=== PATIENT | female | born 2000 | race Caucasian/White ===

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

== ENCOUNTER 2021-06-26 12:26 | Inpatient (IN) ==
[2021-06-26 13:52] LABS: Basophils # (auto) 0.05 K/uL (0-0.2); Basophils % (auto) 0.6 %; Eosinophils # (auto) 0.57 K/uL (0-0.5); Eosinophils % (auto) 6.8 %; Hemoglobin 13.2 g/dL (12.0-16.0); Immature Granulocytes # (auto) 0.02 K/uL (0.00-0.02); Immature Granulocytes % (auto) 0.2 %; Lymphocytes # (auto) 1.96 K/uL (1.2-3.4); Lymphocytes % (auto) 23.4 %; Mean Corpuscular Hemoglobin 30.3 pg (25-34); Mean Platelet Volume 10.6 fL (7.4-10.4); Monocytes % (auto) 7.2 %; Neutrophils # (auto) 5.18 K/uL (1.4-6.5); Neutrophils % (auto) 61.8 %; Platelet Count 315 K/uL (130-400); RDW Coefficient of Variation 12.6 % (11.5-14.5); RDW Standard Deviation 42.8 fL (36.4-46.3); Red Blood Count 4.35 M/uL (4.2-5.4); White Blood Count 8.38 K/uL (4.8-10.8)
[2021-06-26 14:05] LABS: Albumin Level 3.2 gm/dl (3.4-5.0); BUN Creatinine Ratio 14.5 (10-20); Calcium 8.8 mg/dl (8.5-10.1); Creatinine Clr Calc Pharmacy 97.7 ml/min; Est GFR (African American) 130.9 ml/min; Est GFR (Non-African American) 112.9 ml/min; Potassium 3.7 mmol/L (3.5-5.1)
[2021-06-26 14:06] LABS: Appearance Urine Clear (Clear); Bilirubin Urine Negative (Negative); Blood Urine Negative (Negative); Color Urine Yellow; Glucose Urine UA Negative (Negative); Ketones Urine Negative (Negative); Leukocyte Esterase Urine Negative (Negative); Nitrite Urine Negative (Negative); Protein Urine Negative (Negative); Specific Gravity Urine 1.015 (1.000-1.030); Urobilinogen Urine Negative (Negative); pH Urine 6.5 (4.5-7.5)
[2021-06-26 14:09] LABS: Albumin Globulin Ratio 0.9 (0.9-2); Bilirubin,Total 0.3 mg/dl (0.2-1); Globulin 3.4 gm/dl (2.5-4.0); Total Protein 6.6 gm/dl (6.4-8.2)
[2021-06-26] MEDS ORDERED: LACTATED RINGER'S 1,000 ML IV ONE ×3 (15:20→17:39)
--- NOTE | 2021-06-26 18:57 | Emergency Department Note ---
Impression & Plan Rhabdomyolysis Admission ED Provider Note HPI: The patient is an otherwise healthy 21-year-old female who presents the emergency department the chief complaint of bilateral arm pain. Patient states that she has a history of rhabdomyolysis, she states that she was lifting weights recently and when she woke up in the morning she had severe achiness in her bilateral trapezius area as well as her bilateral biceps. She states that previously she required IV fluids for rhabdomyolysis and this felt similar therefore she presented to the ED for further evaluation. On arrival to the ED the patient is hemodynamically stable, she is not tachycardic, she is saturating well on room air and is otherwise in no acute distress. ROS: -MSK: Muscle aches *10 point review systems was conducted and is otherwise negative unless stated above *Outpatient medications and allergy history reviewed PE: General: Alert, NAD HEENT: Normocephalic, atraumatic, trachea midline Eyes: Extraocular eye movement is intact, no scleral erythema Pulmonary: Clear to auscultation bilaterally, no wheezing Cardio: Regular rate and rhythm GI: Abdomen is soft, nontender : No suprapubic tenderness MSK: No evidence of trauma or malformation of the extremities, no edema Skin: No evidence of rash Neuro: Alert, no focal deficits Psychiatric: Cooperative Medical Decision Making: Patient presented to the emergency department with muscle aches, she states she has had rhabdomyolysis in the past associated with exertional exercise. Patient states that she was lifting 2 days ago and woke up with muscle aches. On arrival here to the ED she is hemodynamically stable, lab work does not show any evidence of acute kidney injury, she is not tachycardic, blood pressure stable. CK levels did return elevated at approximately 4200, patient was IV fluid resuscitated with 3 L of lactated Ringer's, repeat CPK level at this time shows uptrend to 5500, patient states that she had a similar course previously, repeat CK levels the next morning showed an uptrend and she required admission this past spring. I think given this and the fact that she is still symptomatic admission is appropriate. I discussed these findings with the on-call hospitalist and the patient was admitted for IV fluid resuscitation and repeat lab work in the morning. Patient was in agreement to this plan and she was admitted in stable condition. * Diagnosis: Rhabdomyolysis * Disposition: Admission Castillo Hagen DO Emergency Medicine Past Med/Surg History Medical History (Updated 06/26/21 @ 20:49 by Castillo Hagen DO) No pertinent family history No pertinent past medical history Rhabdomyolysis Surgical History (Updated 12/29/20 @ 18:38 by Lester Colin) No pertinent past surgical history Family History Other No pertinent family history Social History Smoking Status: Never smoker Hx Alcohol Use: Yes Alcohol type: wine Hx Substance Use: No Preferred Language: Kazakh Communication Ability: Effective Line Controller Required: No Beliefs That Will Affect Care: None Current Living Situation: Other Current Living Situation Comment: Student lives with two roommates Feels Safe at Home: Yes Assistive Devices: None Allergies Allergies Allergy/AdvReac Type Severity Reaction Status Date / Time No Known Allergies Allergy Verified 06/26/21 16:21 Home Meds Home Medications Medication Instructions Recorded Confirmed norethindrone 1.5 mg-ethinyl 1 tab PO DAILY 07/18/20 06/26/21 estradiol 30 mcg(21)/iron 75 mg(7) tablet (Junel FE 1.5/30 (28)) Results & Data (ED) Vital Signs Vital Signs - 24 hr 06/26/21 12:35 06/26/21 14:27 06/26/21 15:53 Temperature 36.7 C Temperature Source Temporal Artery Scan Pulse Rate 80 Pulse Rate [Right Finger] 100 H 66 Pulse Rhythm [Right Finger] Regular Pulse Strength [Right Finger] Normal Respiratory Rate 18 18 18 Respiratory Effort / Characteristics Non-Labored Respiratory Depth Normal Normal Respiratory Pattern Regular Blood Pressure 136/75 Blood Pressure [Right Arm] 120/72 120/72 Blood Pressure Mean 95 Blood Pressure Mean [Right Arm] 88 88 Blood Pressure Position [Right Arm] Lying Pulse Oximetry 98 100 100 Oxygen Delivery Method Room Air Room Air Room Air Sepsis Recent Fever Within 48 Hours No Sepsis New/Unexplained Change in Mental Status No Sepsis Action Taken by Nursing No Action Required 06/26/21 17:00 Temperature Temperature Source Pulse Rate Pulse Rate [Right Finger] 60 Pulse Rhythm [Right Finger] Regular Pulse Strength [Right Finger] Normal Respiratory Rate 16 Respiratory Effort / Characteristics Non-Labored Respiratory Depth Normal Respiratory Pattern Regular Blood Pressure Blood Pressure [Right Arm] 117/70 Blood Pressure Mean Blood Pressure Mean [Right Arm] 85 Blood Pressure Position [Right Arm] Lying Pulse Oximetry 100 Oxygen Delivery Method Room Air Sepsis Recent Fever Within 48 Hours Sepsis New/Unexplained Change in Mental Status Sepsis Action Taken by Nursing Laboratory Data Result diagrams: 06/26/21 13:21 06/26/21 13:21 Lab Results 06/26/21 06/26/21 06/26/21 Range/Units 13:21 13:21 13:30 WBC 8.38 (4.8-10.8) K/uL RBC 4.35 (4.2-5.4) M/uL Hgb 13.2 (12.0-16.0) g/dL Hct 40.0 (37-47) % MCV 92.0 (80-100) fL MCH 30.3 (25-34) pg MCHC 33.0 (32-36) g/dL RDW Std Deviation 42.8 (36.4-46.3) fL RDW Coeff of Yair 12.6 (11.5-14.5) % Plt Count 315 (130-400) K/uL MPV 10.6 H (7.4-10.4) fL Immature Gran % (Auto) 0.2 % Neut % (Auto) 61.8 % Lymph % (Auto) 23.4 % Phillips % (Auto) 7.2 % Eos % (Auto) 6.8 % Baso % (Auto) 0.6 % Neut # (Auto) 5.18 (1.4-6.5) K/uL Lymph # (Auto) 1.96 (1.2-3.4) K/uL Phillips # (Auto) 0.60 H (0.11-0.59) K/uL Eos # (Auto) 0.57 H (0-0.5) K/uL Baso # (Auto) 0.05 (0-0.2) K/uL Immature Gran # (Auto) 0.02 (0.00-0.02) K/uL Sodium 138 (136-145) mmol/L Potassium 3.7 (3.5-5.1) mmol/L Chloride 108 H (98-107) mmol/L Carbon Dioxide 23 (21-32) mmol/L Anion Gap 7.0 (3-11) BUN 11 (7-18) mg/dl Creatinine 0.76 (0.6-1.2) mg/dl Est Cr Clr Drug Dosing 97.7 ml/min Est GFR ( Amer) 130.9 ml/min Est GFR (Non-Af Amer) 112.9 ml/min BUN/Creatinine Ratio 14.5 (10-20) Glucose 108 H (70-99) mg/dl Calcium 8.8 (8.5-10.1) mg/dl Total Bilirubin 0.3 (0.2-1) mg/dl AST 119 H (15-37) U/L ALT 53 (12-78) U/L Alkaline Phosphatase 45 (45-117) U/L Total Creatine Kinase 4268 H (26-192) U/L Total Protein 6.6 (6.4-8.2) gm/dl Albumin 3.2 L (3.4-5.0) gm/dl Globulin 3.4 (2.5-4.0) gm/dl Albumin/Globulin Ratio 0.9 (0.9-2) Urine Color Yellow Urine Appearance Clear (Clear) Urine pH 6.5 (4.5-7.5) Ur Specific [place] 1.015 (1.000-1.030) Urine Protein Negative (Negative) Urine Glucose (UA) Negative (Negative) Urine Ketones Negative (Negative) Urine Blood Negative (Negative) Urine Nitrite Negative (Negative) Urine Bilirubin Negative (Negative) Urine Urobilinogen Negative (Negative) Ur Leukocyte Esterase Negative (Negative) 06/26/21 Range/Units 19:07 WBC (4.8-10.8) K/uL RBC (4.2-5.4) M/uL Hgb (12.0-16.0) g/dL Hct (37-47) % MCV (80-100) fL MCH (25-34) pg MCHC (32-36) g/dL RDW Std Deviation (36.4-46.3) fL RDW Coeff of Yair (11.5-14.5) % Plt Count (130-400) K/uL MPV (7.4-10.4) fL Immature Gran % (Auto) % Neut % (Auto) % Lymph % (Auto) % Phillips % (Auto) % Eos % (Auto) % Baso % (Auto) % Neut # (Auto) (1.4-6.5) K/uL Lymph # (Auto) (1.2-3.4) K/uL Phillips # (Auto) (0.11-0.59) K/uL Eos # (Auto) (0-0.5) K/uL Baso # (Auto) (0-0.2) K/uL Immature Gran # (Auto) (0.00-0.02) K/uL Sodium (136-145) mmol/L Potassium (3.5-5.1) mmol/L Chloride (98-107) mmol/L Carbon Dioxide (21-32) mmol/L Anion Gap (3-11) BUN (7-18) mg/dl Creatinine (0.6-1.2) mg/dl Est Cr Clr Drug Dosing ml/min Est GFR ( Amer) ml/min Est GFR (Non-Af Amer) ml/min BUN/Creatinine Ratio (10-20) Glucose (70-99) mg/dl Calcium (8.5-10.1) mg/dl Total Bilirubin (0.2-1) mg/dl AST (15-37) U/L ALT (12-78) U/L Alkaline Phosphatase (45-117) U/L Total Creatine Kinase 5582 H (26-192) U/L Total Protein (6.4-8.2) gm/dl Albumin (3.4-5.0) gm/dl Globulin (2.5-4.0) gm/dl Albumin/Globulin Ratio (0.9-2) Urine Color Urine Appearance (Clear) Urine pH (4.5-7.5) Ur Specific [place] (1.000-1.030) Urine Protein (Negative) Urine Glucose (UA) (Negative) Urine Ketones (Negative) Urine Blood (Negative) Urine Nitrite (Negative) Urine Bilirubin (Negative) Urine Urobilinogen (Negative) Ur Leukocyte Esterase (Negative) Administered Medications Discontinued Medications Lactated Ringer's (Lr) 1,000 mls @ 999 mls/hr IV .Q1H1M ONE Stop: 06/26/21 16:20 Last Infusion: 06/26/21 17:50 Dose: 0 mls/hr Documented by: [id number] Admin: 06/26/21 15:52 Dose: 999 mls/hr Documented by: [id number] Lactated Ringer's (Lr) 1,000 mls @ 999 mls/hr IV .Q1H1M ONE Stop: 06/26/21 16:55 Last Infusion: 06/26/21 17:50 Dose: 0 mls/hr Documented by: [id number] Admin: 06/26/21 16:43 Dose: 999 mls/hr Documented by: [id number] Lactated Ringer's (Lr) 1,000 mls @ 999 mls/hr IV .Q1H1M ONE Stop: 06/26/21 18:39 Last Infusion: 06/26/21 18:50 Dose: 0 mls/hr Documented by: [id number] Admin: 06/26/21 17:49 Dose: 999 mls/hr Documented by: [id number] Discharge Plan Visit Data Chief Complaint: Arm Pain Stated Complaint: FEELS LIKE BICEPS TORN,FEEL LIKE CAN'T OPEN ARMS ED Provider: Castillo Hagen Discharge Problem: Rhabdomyolysis Forms Stand Alone Forms: [facility] Prescriptions Prescriptions: No Action norethindrone-e.estradiol-iron [09.12/30 (28)] 1.5 mg-30 mcg (21)/75 mg (7) tablet 1 tab PO DAILY RF: 0 Referrals Referrals: Howie Elmore DO [Primary Care Provider] - Discharge Problem: Rhabdomyolysis Qualifiers: Rhabdomyolysis type: non-traumatic Qualified Code(s): M62.82 - Rhabdomyolysis
[2021-06-26] MEDS ORDERED: SODIUM CHLORIDE 0.9% 1000ML 1,000 ML IV SCH (20:45)
[2021-06-26] MEDS ORDERED: LACTATED RINGER'S 1,000 ML IV SCH (21:03)
[2021-06-26] MEDS: NORMOSOL-R 1,000 ML IV SCH (21:20)
--- NOTE | 2021-06-26 21:38 | History & Physical Report ---
Date of Service June 26, 2021 Assessment & Plan (1) Rhabdomyolysis: Plan: Reoccurring rhabdomyolysis of the upper extremities- normothermic, no trauma, normal compartments, no medications that increase risk - Mild Rhabdomyolysis- CK currently 5582 - iCA- /PO4-2.8 - Smith score of 1 (female) - Continue Normosol at 200 ml an hour overnight- can wean down rate as long as urine output remains brisk. - CK 2300 with myoglobin at 2300 and then in morning - UA repeat in morning - No numbness/tingling or pain out of proportion - could consider metabolic myopathy workup as outpatient with re-occurrence and family history (Glycogen, Purine, Lipid storage disease) (2) DVT prophylaxis: Plan: VTE: SCDs ambulation Diet: Regular Disp: Admit to medical floor History of Present Illness Primary Care Provider: Howie Elmore, DO 21 YOF with past medical history of: Rhabdomyolysis x1 noted in November of 2020 following upper body workout. Patient comes to the [facility] today for arm pain and stiffness similar to her feeling of past admission. Patient worked out 2 days ago on where she did do an arm workout. Patient states that she did not do a heavy workout as last time she did this she was admitted for the above. She normally works out 2-3 times per week and did not change her workout or weights. She also practices (cheerleader) 3 times per week as well. Patient states that her pain and stiffness to her arms has gotten worse. In the [facility] she had routine labs done to include CK and UA. Her initial CK was 4268 at 1300, she was given 3liters of ringers lactate and re-check of CK was 5582. Patient voided x1 which she states was clear. UA was normal with SG of 1.015 and no blood or RBCs noted, and normal PH. Her CMP resulted with normal HCO3. Elevated AST and normal ALT of 119 consistent with Rhabdo. Patient endorses using pre-workout, but this is not something new for her as always uses it prior to workout. She does run and has never had this happen to her with her legs. Patient endorses family history of rhabdomyolysis with her sister who had it with her abdomen following hard physical workout. Patient will be admitted for continued IV and oral hydration and following CK and renal function. Patient has received her COVID vaccination and her COVID test on admission is: Allergies Allergy/AdvReac Type Severity Reaction Status Date / Time No Known Allergies Allergy Verified 06/26/21 16:21 Home Medications Medication Instructions Recorded Confirmed Type norethindrone 1.5 mg-ethinyl 1 tab PO DAILY 07/18/20 06/26/21 History estradiol 30 mcg(21)/iron 75 mg(7) tablet (June FE .02/04 (28)) Past Med/Surg History Medical History No pertinent family history No pertinent past medical history Rhabdomyolysis Surgical History No pertinent past surgical history Family History Other No pertinent family history Social History Smoking Status: Never smoker Hx Alcohol Use: Yes Alcohol type: wine Hx Substance Use: No Preferred Language: Cook Islander Communication Ability: Effective Paster Operator Required: No Beliefs That Will Affect Care: None Current Living Situation: Other Current Living Situation Comment: Student lives with two roommates Feels Safe at Home: Yes Assistive Devices: None Review of Systems Review of Systems: REVIEW OF SYSTEMS: Constitutional: No fever, sweats or chills Eyes: No diplopia, no worsening or blurred vision ENT: normal hearing, no trouble swallowing Respiratory: No cough, sputum, dyspnea at rest or on exertion Cardiovascular: No chest pain, tightness or palpitations Abdomen: No pain, nausea, vomiting, diarrhea or constipation Musculoskeletal: (+) arm pain and stiffness, No joint pain, calf pain, swelling Neurologic: No weakness, numbness/tingling, or balance problems Psychiatric: No anxiety or depression Skin: No rash or itch Physical Exam Physical Exam: PHYSICAL EXAM: General: awake, alert, no apparent distress Head: Normocephalic, atraumatic ENT: PERRL, EOMI, no pharyngeal exudate, mucous membranes moist Neuro: AAO x 3, speech clear and appropriate, strength intact bilaterally 5/5, sensation intact and equal all extremities and dermatomes, no pronator drift Chest: equal rise and fall of the chest, no accessory muscle use, no heaves or thrills, Clear to auscultation, on room air, Cardiac: Regular rate and rhythm, telemetry reviewed- NSR, skin warm dry, cap refill <3 seconds, peripheral pulses +2 no JVD, no murmur, no edema GI: NABS x 4 quadrants, soft, nontender to palpation, no rebound, guarding or tenderness : Spontaneously voiding, no pain, no CVA tenderness, MSK: Arms and shoulders with full range of motion, active extension and flexion. Compartments are soft to the arms, forearms, and biceps, lower leg compartments soft Psych: Normal mood and affect Skin: no rash or erythema Results & Data Results & Data ([facility]) Vital Signs (Past 12 Hours) Vital Signs Temp Pulse Pulse Resp BP BP Pulse Ox 06/26/21 17:00 60 16 117/70 100 06/26/21 15:53 66 18 120/72 100 06/26/21 14:27 100 H 18 120/72 100 06/26/21 12:35 36.7 C 80 18 136/75 98 Laboratory Results Abnormal lab results 06/26/21 06/26/21 06/26/21 Range/Units 13:21 13:21 19:07 MPV 10.6 H (7.4-10.4) fL Rice # (Auto) 0.60 H (0.11-0.59) K/uL Eos # (Auto) 0.57 H (0-0.5) K/uL Chloride 108 H (98-107) mmol/L Glucose 108 H (70-99) mg/dl AST 119 H (15-37) U/L Total Creatine Kinase 4268 H 5582 H (26-192) U/L Albumin 3.2 L (3.4-5.0) gm/dl Diagnostic Findings NONE indicated Medications Administered Parenteral Electrolytes (Normosol-R) 1,000 mls @ 200 mls/hr IV .Q5H MARISABEL Stop: 07/26/21 21:14 Last Admin: 06/26/21 21:20 Dose: 200 mls/hr Documented by: [id number] Discontinued Medications Lactated Ringer's (Lr) 1,000 mls @ 999 mls/hr IV .Q1H1M ONE Stop: 06/26/21 16:20 Last Infusion: 06/26/21 17:50 Dose: 0 mls/hr Documented by: [id number] Admin: 06/26/21 15:52 Dose: 999 mls/hr Documented by: [id number] Lactated Ringer's (Lr) 1,000 mls @ 999 mls/hr IV .Q1H1M ONE Stop: 06/26/21 16:55 Last Infusion: 06/26/21 17:50 Dose: 0 mls/hr Documented by: [id number] Admin: 06/26/21 16:43 Dose: 999 mls/hr Documented by: [id number] Lactated Ringer's (Lr) 1,000 mls @ 999 mls/hr IV .Q1H1M ONE Stop: 06/26/21 18:39 Last Infusion: 06/26/21 18:50 Dose: 0 mls/hr Documented by: [id number] Admin: 06/26/21 17:49 Dose: 999 mls/hr Documented by: [id number] ECG Additional Comments: Not performed- not indicated Code Status & VTE Plan Code Status CODE: FULL VTE: SCDs, ambulation VTE Prophylaxis Plan VTE Prophylaxis will be ordered: Yes Supervising Physician Co-Signing Physician Notes Patient seen and examined, chart reviewed, case discussed with ODETTE Monson and I agree with his assessment and plan as documented above. In brief, patient is a 21yo female with prior personal history as well as family history of rhabdomyolysis presenting with the same. 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 Initial CK 4268. She was given 3L LR and repeat CK 5582. She has ongoing fluids running at 250mL/hr and repeat CK is still increasing, most recently 716 6. Urine is clear, no blood detected. On exam she is afebrile, HD stable, nontoxic in appearance Skin - warm, dry, intact, no rashes/lesions HEENT - NC/AT, PERRL, MMM, Neck supple Heart - +S1/S2, regular, no m/r/g Lungs - CTA, no rales/rhonchi/wheezes Abd - +BS, soft, NT/ND Ext - tenderness and bogginess of bilateral UE biceps, soft, NV intact with 2+ pulses Labs and images reviewed Assessment/Plan -Continue IVF -Repeat CK -Consider genetic evaluation for hereditary causes of rhabdomyolysis as outpatient -Remainder of plan as above PG Care Time/CCT Total # of Minutes Spent Total Time Spent with Patient: Total time spent is greater than 50% in coordination of care (as documented) at patient's floor/unit and/or counseling patient: Coding Level of Care Code 69206 Initial Inpt Care Lvl 2 Diagnoses Rhabdomyolysis M62.82 Rhabdomyolysis type: non-traumatic DVT prophylaxis Z29.9 (1) Rhabdomyolysis Rhabdomyolysis type: non-traumatic Qualified Code(s): M62.82 - Rhabdomyolysis
[2021-06-26 23:11] LABS: Pregnancy Test, Urine Negative (Negative)
[2021-06-27] MEDS ORDERED: ACETAMINOPHEN 325 MG TAB PO PRN (00:32)
[2021-06-27] MEDS: NORMOSOL-R 1,000 ML IV SCH ×5 (00:44→20:50)
[2021-06-27 05:46] LABS: Basophils # (auto) 0.04 K/uL (0-0.2); Basophils % (auto) 0.6 %; Eosinophils # (auto) 0.57 K/uL (0-0.5); Eosinophils % (auto) 8.5 %; Hematocrit (blood only) 39.4 % (37-47); Hemoglobin 12.7 g/dL (12.0-16.0); Immature Granulocytes # (auto) 0.01 K/uL (0.00-0.02); Immature Granulocytes % (auto) 0.1 %; Lymphocytes # (auto) 2.08 K/uL (1.2-3.4); Lymphocytes % (auto) 31.1 %; Mean Corpuscular Hemoglobin 29.9 pg (25-34); Mean Corpuscular Hgb Conc 32.2 g/dL (32-36); Mean Corpuscular Volume 92.7 fL (80-100); Mean Platelet Volume 10.2 fL (7.4-10.4); Monocytes # (auto) 0.69 K/uL (0.11-0.59); Monocytes % (auto) 10.3 %; Neutrophils % (auto) 49.4 %; Platelet Count 307 K/uL (130-400); RDW Coefficient of Variation 12.7 % (11.5-14.5); RDW Standard Deviation 43.1 fL (36.4-46.3); Red Blood Count 4.25 M/uL (4.2-5.4); White Blood Count 6.69 K/uL (4.8-10.8)
[2021-06-27 06:10] LABS: BUN Creatinine Ratio 11.1 (10-20); Calcium 7.9 mg/dl (8.5-10.1); Creatinine Clr Calc Pharmacy 112.5 ml/min; Est GFR (African American) 147.4 ml/min; Est GFR (Non-African American) 127.2 ml/min; Magnesium 2.4 mg/dl (1.8-2.4)
--- NOTE | 2021-06-27 07:52 | Hospitalist Progress Note ---
Date of Service June 27, 2021 Assessment & Plan (1) Rhabdomyolysis: Plan: Dali Mederos is a 21-year-old female with past history of rhabdomyolysis in November 2020 who is admitted to [facility] [place] due to repeat episode of rhabdomyolysis. Rhabdomyolysis: Reoccurring rhabdomyolysis of the upper extremities- normothermic, no trauma, normal compartments, no medications that increase risk - CK peaked at 7166, downtrending to 6936 today - Continue IVF at 200cc/hr - No numbness/tingling or pain out of proportion -- no concerns for compartment syndrome at this point - Repeat CK in AM - Could consider metabolic myopathy workup as outpatient with re-occurrence and family history (Glycogen, Purine, Lipid storage disease) DVT ppx: SCDs, ambulation Diet: Regular Disp: MedSurg CODE: FULL CODE (2) DVT prophylaxis: Admission and Anticipated Discharge Date Admission Date: June 26, 2021 Supervising Physician Co-Signing Physician Notes Resident Physician Supervision Note: I independently interviewed and examined the patient and verified the delcid history and physical, reviewed labs and image studies and agree with resident Dr. Garcia findings and care plan. Subjective No acute events overnight. Patient reports feeling essentially the same as when she came in. Says that her workout was about 2 days ago and she does not feel this was a particularly strenuous one. Feels she had reasonably adequate fluid intake. Denies fever, chills, nausea, vomiting, dark/bloody urine, abd pain. Review of Systems Review of Systems: per subjective Physical Exam Physical Exam: GENERAL: A&Ox3. NAD. CHEST/LUNGS: CTAB A/P. No crackles, wheezes, rales, rhonchi. HEART: RRR. No m/g/r. No carotid bruits. ABDOMEN: NT/ND, soft. BS+ x4 EXTREMITIES: No cyanosis, no clubbing, no edema. Limited ROM in arms 2/2 pain. SKIN: Warm and dry. No rashes or lesions. NEUROLOGIC: No FND. CN II-XII grossly intact. Results & Data Results & Data ([facility]) Vital Signs (Past 12 Hours) Vital Signs Temp Pulse Pulse Resp BP BP Pulse Ox 06/27/21 00:30 37 C 79 18 122/66 96 06/27/21 00:19 82 19 131/76 99 06/26/21 23:22 78 16 130/71 100 Resident Activity Tracking Resident Involvement: Resident Care Provided Care Provided: Adult Hospital Medicine (1) Rhabdomyolysis Rhabdomyolysis type: non-traumatic Qualified Code(s): M62.82 - Rhabdomyolysis
[2021-06-27] MEDS ORDERED: FLUARIX QUADRIVALENT 0.5 ML SYR IM ONE (08:00)
[2021-06-27 08:35] LABS: Appearance Urine Clear (Clear); Bilirubin Urine Negative (Negative); Blood Urine Negative (Negative); Color Urine Yellow; Glucose Urine UA Negative (Negative); Ketones Urine Negative (Negative); Leukocyte Esterase Urine Negative (Negative); Nitrite Urine Negative (Negative); Protein Urine Negative (Negative); Specific Gravity Urine 1.011 (1.000-1.030); Urobilinogen Urine Negative (Negative)
[2021-06-28] MEDS: NORMOSOL-R 1,000 ML IV SCH ×5 (01:54→21:28)
[2021-06-28 09:32] LABS: Basophils # (auto) 0.04 K/uL (0-0.2); Basophils % (auto) 0.5 %; Eosinophils # (auto) 0.49 K/uL (0-0.5); Hematocrit (blood only) 41.5 % (37-47); Hemoglobin 13.8 g/dL (12.0-16.0); Immature Granulocytes # (auto) 0.01 K/uL (0.00-0.02); Immature Granulocytes % (auto) 0.1 %; Lymphocytes # (auto) 1.88 K/uL (1.2-3.4); Lymphocytes % (auto) 22.9 %; Mean Corpuscular Hemoglobin 31.2 pg (25-34); Mean Corpuscular Hgb Conc 33.3 g/dL (32-36); Mean Corpuscular Volume 93.7 fL (80-100); Mean Platelet Volume 10.8 fL (7.4-10.4); Monocytes # (auto) 0.65 K/uL (0.11-0.59); Monocytes % (auto) 7.9 %; Neutrophils # (auto) 5.15 K/uL (1.4-6.5); Neutrophils % (auto) 62.6 %; Platelet Count 291 K/uL (130-400); RDW Coefficient of Variation 12.6 % (11.5-14.5); RDW Standard Deviation 43.1 fL (36.4-46.3); Red Blood Count 4.43 M/uL (4.2-5.4); White Blood Count 8.22 K/uL (4.8-10.8)
[2021-06-28 10:04] LABS: BUN Creatinine Ratio 15.1 (10-20); Blood Urea Nitrogen 8 mg/dl (7-18); Calcium 8.4 mg/dl (8.5-10.1); Carbon Dioxide 26 mmol/L (21-32); Chloride 109 mmol/L (98-107); Est GFR (African American) > 150.0 ml/min; Glucose 93 mg/dl (70-99); Magnesium 2.4 mg/dl (1.8-2.4); Potassium 4.7 mmol/L (3.5-5.1); Sodium 138 mmol/L (136-145)
[2021-06-28 10:37] LABS: Creatine Kinase 7385 U/L (26-192)
--- NOTE | 2021-06-28 12:50 | Hospitalist Progress Note ---
Date of Service June 28, 2021 Assessment & Plan (1) Rhabdomyolysis: Plan: Dali Mederos is a 21-year-old female with past history of rhabdomyolysis in November 2020 who is admitted to [facility] due to repeat episode of rhabdomyolysis. Rhabdomyolysis: Reoccurring rhabdomyolysis of the upper extremities- normothermic, no trauma, normal compartments, no medications that increase risk - CK increased back to 7385 from 6936 - Continue IVF at 200cc/hr - No numbness/tingling or pain out of proportion -- no concerns for compartment syndrome at this point - Repeat CK in AM - Could consider metabolic myopathy workup as outpatient with re-occurrence and family history (Glycogen, Purine, Lipid storage disease) DVT ppx: SCDs, ambulation Diet: Regular Disp: MedSurg CODE: FULL CODE (2) DVT prophylaxis: Admission and Anticipated Discharge Date Admission Date: June 26, 2021 Supervising Physician Co-Signing Physician Notes Resident Physician Supervision Note: I independently interviewed and examined the patient and verified the delcid history and physical, reviewed labs and image studies and agree with resident Dr. Garcia findings and care plan. Subjective No acute events overnight. Patient seen at bedside this AM. Reports that her arms are feeling somewhat better and she is able to move them a little more. Denies urinary symptoms, CVA tenderness, shortness of breath, fever, chills or any other complaints at this time. Review of Systems Review of Systems: per subjective Physical Exam Physical Exam: GENERAL: A&Ox3. NAD. CHEST/LUNGS: CTAB A/P. No crackles, wheezes, rales, rhonchi. HEART: RRR. No m/g/r. No carotid bruits. ABDOMEN: NT/ND, soft. BS+ x4 EXTREMITIES: No cyanosis, no clubbing, no edema. Limited ROM in arms 2/2 pain. SKIN: Warm and dry. No rashes or lesions. NEUROLOGIC: No FND. CN II-XII grossly intact. Results & Data Results & Data ([facility]) Vital Signs (Past 12 Hours) Vital Signs Temp Pulse Resp BP Pulse Ox 06/28/21 07:38 36.7 C 70 16 143/72 H 98 Resident Activity Tracking Resident Involvement: Resident Care Provided Care Provided: Adult Hospital Medicine (1) Rhabdomyolysis Rhabdomyolysis type: non-traumatic Qualified Code(s): M62.82 - Rhabdomyolysis
[2021-06-28] MEDS: guaiFENesin 600 MG TABCR PO SCH (21:47)
[2021-06-29] MEDS: NORMOSOL-R 1,000 ML IV SCH ×3 (01:49→10:23)
[2021-06-29 06:14] LABS: Basophils # (auto) 0.04 K/uL (0-0.2); Basophils % (auto) 0.6 %; Eosinophils # (auto) 0.48 K/uL (0-0.5); Eosinophils % (auto) 6.8 %; Hematocrit (blood only) 37.4 % (37-47); Hemoglobin 12.6 g/dL (12.0-16.0); Immature Granulocytes # (auto) 0.01 K/uL (0.00-0.02); Immature Granulocytes % (auto) 0.1 %; Lymphocytes # (auto) 2.13 K/uL (1.2-3.4); Mean Corpuscular Hemoglobin 30.8 pg (25-34); Mean Corpuscular Hgb Conc 33.7 g/dL (32-36); Mean Corpuscular Volume 91.4 fL (80-100); Mean Platelet Volume 10.5 fL (7.4-10.4); Monocytes # (auto) 0.82 K/uL (0.11-0.59); Monocytes % (auto) 11.5 %; Neutrophils # (auto) 3.62 K/uL (1.4-6.5); Platelet Count 280 K/uL (130-400); RDW Coefficient of Variation 12.4 % (11.5-14.5); RDW Standard Deviation 41.9 fL (36.4-46.3); Red Blood Count 4.09 M/uL (4.2-5.4)
[2021-06-29 06:45] LABS: BUN Creatinine Ratio 11.6 (10-20); Blood Urea Nitrogen 7 mg/dl (7-18); Calcium 7.9 mg/dl (8.5-10.1); Carbon Dioxide 23 mmol/L (21-32); Chloride 109 mmol/L (98-107); Creatinine Clr Calc Pharmacy 130.2 ml/min; Est GFR (African American) > 150.0 ml/min; Est GFR (Non-African American) 133.5 ml/min; Glucose 86 mg/dl (70-99); Magnesium 2.2 mg/dl (1.8-2.4); Potassium 4.3 mmol/L (3.5-5.1); Sodium 139 mmol/L (136-145)
[2021-06-29 07:03] LABS: Creatine Kinase 4415 U/L (26-192)
--- NOTE | 2021-06-29 08:06 | Discharge Summary ---
Date of Service June 29, 2021 Admission HPI Per Admitting Provider 21 YOF with past medical history of: Rhabdomyolysis x1 noted in November of 2020 following upper body workout. Patient comes to the [facility] today for arm pain and stiffness similar to her feeling of past admission. Patient worked out 2 days ago on where she did do an arm workout. Patient states that she did not do a heavy workout as last time she did this she was admitted for the above. She normally works out 2-3 times per week and did not change her workout or weights. She also practices (cheerleader) 3 times per week as well. Patient states that her pain and stiffness to her arms has gotten worse. In the [facility] she had routine labs done to include CK and UA. Her initial CK was 4268 at 1300, she was given 3liters of ringers lactate and re-check of CK was 5582. Patient voided x1 which she states was clear. UA was normal with SG of 1.015 and no blood or RBCs noted, and normal PH. Her CMP resulted with normal HCO3. Elevated AST and normal ALT of 119 consistent with Rhabdo. Patient endorses using pre-workout, but this is not something new for her as always uses it prior to workout. She does run and has never had this happen to her with her legs. Patient endorses family history of rhabdomyolysis with her sister who had it with her abdomen following hard physical workout. Patient will be admitted for continued IV and oral hydration and following CK and renal function. Patient has received her COVID vaccination and her COVID test on admission is: Principal Diagnosis Rhabdomyolysis Discharge Exam GENERAL: A&Ox3. NAD. HEENT: PERRL, EOMI. Moist mucous membranes. NECK: No JVD. No lymphadenopathy. CHEST/LUNGS: CTAB A/P. No crackles, wheezes, rales, rhonchi. HEART: RRR. No m/g/r. No carotid bruits. ABDOMEN: NT/ND, soft. BS+ x4 EXTREMITIES: No cyanosis, no clubbing, no edema SKIN: Warm and dry. No rashes or lesions. PSYCHIATRIC: Euthymic affect, no SI, no pressured speech, no hallucinations NEUROLOGIC: No FND. CN II-XII grossly intact. Discharge Data Allergies Allergy/AdvReac Type Severity Reaction Status Date / Time No Known Allergies Allergy Verified 06/26/21 16:21 Consultations 06/26/21 20:33 ED Decision to Admit Stat Hospital Course (1) Rhabdomyolysis: Dali Mederos is a 21-year-old female with past history of rhabdomyolysis in November 2020 who is admitted to [facility] due to repeat episode of rhabdomyolysis. Rhabdomyolysis: Reoccurring rhabdomyolysis of the upper extremities- normothermic, no trauma, normal compartments, no medications that increase risk - CK peaked at 7385, downtrending to 4415 on day of DC - Treated with IVF with downtrend after 72 hours post-workout - Recommend oral hydration at home and avoid over-training - Could consider metabolic myopathy workup as outpatient with re-occurrence and family history (Glycogen, Purine, Lipid storage disease) - F/U with PCP/Team doctor Dispo: Home - Self Care (2) DVT prophylaxis: Total Time Total Time Spent Total Time Spent (In Minutes): see attending attestation Discharge Plan Discharge Items Patient Disposition: Home - Self-Care Reason For Visit: ELEVATED CPK - RHABDOMYOLOSIS Discharge Diagnosis: Rhabdomyolysis Activity: Per Instructions section Non-emergency contact: Primary Care Provider Call non-emergency contact if: you have any medication questions and your symptoms worsen Follow-up/Referrals: Howie Elmore DO [Primary Care Provider] - 07/05/21 11:30 am Diet: Regular Addtl Attending Provider Instructions: You were admitted to [facility] due to arm pain and stiffness. You are found to have an elevated CK level, indicative of rhabdomyolysis. This likely occurred due to overworked muscles and/or insufficient hydration. After receiving IV hydration, your blood CK levels decreased significantly and your symptoms were improving. As such, you will be discharged to finish your recovery at home. We recommend that you hydrate with at least 80 ounces of fluid daily. Additionally, avoid over-training specific muscle groups, especially in your arms as these have been an issue for you previously. We recommend that you follow-up with your primary care provider and/or team doctor to discuss this repeat episode of rhabdomyolysis. Pending Studies at Discharge: No Stand-Alone Forms: My [facility] [address], Smoking Cessation Medications and DC Order Prescriptions: Continued norethindrone-e.estradiol-iron [ (28)] 1.5 mg-30 mcg (21)/75 mg (7) tablet 1 tab PO DAILY RF: 0 Discharge Orders: Discharge Order (Routine); Ordered 06/29/21 Ordered By: Mark Holloway Admission Data Admit Date/Time: 06/26/21 21:07 Attending Provider: Ai Oneal Admit Provider: Xenia Rudolph Primary Care Provider: Howie Elmore Other Providers: Xenia Rudolph Other Interventions: Discharge Summary Assessment (RN) Last Done: 06/29/21 10:29 Supervising Physician Co-Signing Physician Notes Resident Physician Supervision Note: I independently interviewed and examined the patient and verified the delcid history and physical, reviewed labs and image studies and agree with resident Dr. Garcia findings and care plan. Resident Activity Tracking Resident Involvement: Resident Care Provided Care Provided: Adult Hospital Medicine
[2021-06-29] MEDS: guaiFENesin 600 MG TABCR PO SCH (10:24)
== END 2021-06-29 11:02 | disposition home or self-care (01) | DRG 558 ==
LOC: ED 12:26 → 3N 21:07 → SUATTDRO 21:07 → 3N 06-27 00:19
DX: M62.82 Rhabdomyolysis